=== PATIENT | female | born 1970 | race Caucasian/White ===

== ENCOUNTER 2023-07-15 16:11 | Emergency (ER) | payer OTHER, SELFPAY ==
[2023-07-15 16:17] VITALS: BP 126/60; PULSE 63; RESP 16; TEMP 36.6; O2SAT 98; BMI 21.3
--- NOTE | 2023-07-15 16:34 | ED.GENADUL1 ---
HPI - General Adult General Chief complaint: Abdominal Pain Stated complaint: Flu symptoms Time Seen by Provider: 07/15/23 16:19 Source: patient Mode of arrival: walk-in Limitations: no limitations History of Present Illness HPI narrative: Patient is a 53-year-old female who is presenting to the ER with multiple complaints. Patient stated that 0 Friday evening she started having episodes of nausea, vomiting, and diarrhea that lasted till 3 AM. Friday patient was having midepigastric discomfort. She was feeling somewhat better and able to drink. Yesterday patient was not feeling well but not having any nausea or vomiting or diarrhea. Patient has no headache or neck pain. Patient has myalgias and arthralgias. Patient feels like she has a temperature but she does not. Patient's boyfriend is at bedside. Patient has no urinary or bowel complaints. Patient is having midepigastric pain and discomfort. She does have her gallbladder does not have her appendix. Patient states her emesis has been the food that she ate starting night of beans and corn bread. Patient today was throwing up chocolate milk. Patient has no black stool, no coffee-ground emesis. All systems are negative except as noted/marked. All systems reviewed and otherwise negative. Nurses note and vital signs reviewed and patient is not hypoxic. General: The patient appears mild distress secondary to discomfort to the midepigastric area, histrionic.. Patient is resting uncomfortably on cart. Patient is not toxic, lethargic, or listless Skin: Warm, dry, no pallor noted. There is no rash noted. No petechiae, purpura. Head: Normocephalic, atraumatic Eye: Normal conjunctiva, no drainage, EOMI. PERRL Ears, Nose, Mouth, and Throat: oral mucosa is moist. Nares patent. Mouth without vesicles. Cardiovascular: Regular Rate and Rhythm, no murmur, gallop, rub Respiratory: Patient is in no distress, no accessory muscle use, lungs are clear to auscultation, no wheezing, rales or rhonchi Back: non-tender, no CVA tenderness bilaterally to percussion. No CT LS midline pain GI: Moderate midepigastric tenderness to palpation, no peritoneal signs, no flank pain bilateral, otherwise tenderness to palpation, no masses appreciated. No rebound, mild guarding, or no rigidity noted. No distention Musculoskeletal: Patient has full range of motion of all of the extremities, no motor, sensory, or focal neurological deficits Neurological: A&O x4, normal speech Psychiatric: Cooperative Related Data Previous Rx's Medication Instructions Recorded ondansetron 4 mg disintegrating 4 mg PO Q4H PRN nausea and 07/15/23 tablet vomiting 3 days #6 tabs Allergies Allergy/AdvReac Type Severity Reaction Status Date / Time azithromycin [From Zithromax] AdvReac Mild Verified 07/15/23 16:17 PFSH PFSH Social History Smoking status: Current every day smoker Exam Constitutional Vital Signs, click to edit/add: Last Vital Signs Temp 97.8 F 07/15/23 16:17 Pulse 63 07/15/23 16:17 Resp 16 07/15/23 16:17 BP 126/60 07/15/23 16:17 Pulse Ox 98 07/15/23 16:17 O2 Del Method Room Air 07/15/23 16:17 Course Vital Signs Vital signs: Vital Signs Temperature 97.8 F 07/15/23 16:17 Pulse Rate 63 07/15/23 16:17 Respiratory Rate 16 07/15/23 16:17 Blood Pressure 126/60 07/15/23 16:17 Pulse Oximetry 98 07/15/23 16:17 Oxygen Delivery Method Room Air 07/15/23 16:17 Temperature 97.8 F 07/15/23 16:17 Pulse Rate 63 07/15/23 16:17 Respiratory Rate 16 07/15/23 16:17 Blood Pressure 126/60 07/15/23 16:17 Pulse Oximetry 98 07/15/23 16:17 Oxygen Delivery Method Room Air 07/15/23 16:17 Medical Decision Making MDM Narrative Medical decision making narrative: Patient is completely asymptomatic after the 1st liter of IV fluids has finished, and IV medication has been given. Patient has a BUN at 25 and creatinine 1.33. Patient has no history of kidney disease. This is most likely dehydration. Patient was given a 2nd bag of IV fluids for hydration. Patient was sent home with prescription for Zofran use as needed. Patient can return to work tomorrow.Patient was very thankful for helping her feel better. Patient said there was individuals and her family that had Norovirus. Her gastrointestinal history asthma last chart with diarrhea. Patient is only had diarrhea for 2 days. No gastrointestinal tessting is needed at this time. No questions at discharge. Lab Data Labs: Lab Results 07/15/23 07/15/23 07/15/23 Range/Units 16:24 16:48 18:08 WBC 12.4 H (4.0-11.0) 10^3/uL RBC 4.74 (4.20-5.40) 10^6/uL Hgb 14.7 (12.0-16.0) g/dL Hct 43.4 (36.0-48.0) % MCV 91.6 (81.0-99.0) fL MCH 31.0 (26.7-34.0) pg MCHC 33.9 (29.9-35.2) g/dL RDW 11.9 (11.0-15.0) % Plt Count 236 (150-450) 10^3/uL MPV 9.4 L (9.5-13.5) fL Neut % (Auto) 74.6 (43.0-75.0) % Lymph % (Auto) 12.8 L (20.5-60.0) % [place] % (Auto) 10.4 (1.7-12.0) % Eos % (Auto) 1.5 (0.9-7.0) % Baso % (Auto) 0.4 (0.2-2.0) % Neut # (Auto) 9.2 H (1.4-6.5) 10^3/uL Lymph # (Auto) 1.6 (1.2-3.8) 10^3/uL [place] # (Auto) 1.3 H (0.3-0.8) 10^3/uL Eos # (Auto) 0.2 (0.0-0.7) 10^3/uL Baso # (Auto) 0.1 (0.0-0.1) 10^3/uL Abs Immat Gran (auto) 0.04 H (0.00-0.03) 10^3/uL Imm/Tot Granulo (auto) 0.3 (0.0-0.5) % Sodium 140 (136-145) mmol/L Potassium 4.1 (3.5-5.1) mmol/L Chloride 101 (98-107) mmol/L Carbon Dioxide 27.5 (21.0-32.0) mmol/L Anion Gap 15.6 BUN 25.0 H (7.0-18.0) mg/dL Creatinine 1.33 H (0.55-1.02) mg/dL Est GFR ( Amer) 51 L (>=60) Est GFR (Non-Af Amer) 42 L (>=60) BUN/Creatinine Ratio 18.8 Glucose 103 (74-106) mg/dL Calcium 9.3 (8.5-10.1) mg/dL Total Bilirubin 0.8 (0.2-1.0) mg/dL AST 18 (15-37) U/L ALT 15 (14-59) U/L Alkaline Phosphatase 64 (46-116) U/L Troponin I High Sens <4.0 L (4.0-51.3) pg/mL Total Protein 7.8 (6.4-8.2) g/dL Albumin 3.6 (3.4-5.0) g/dL Globulin 4.2 g/dL Albumin/Globulin Ratio 0.9 Lipase 25.0 (16.0-77.0) U/L Urine Color Lt. yellow (YELLOW) Urine Clarity Clear (CLEAR) Urine pH 5.5 (5.0-9.0) Ur Specific [place] 1.015 (1.005-1.025) Urine Protein 30 A (NEG/TRACE) mg/dL Urine Glucose (UA) Negative (NEGATIVE) mg/dL Urine Ketones Trace A (NEGATIVE) mg/dL Urine Occult Blood Small A (NEGATIVE) Urine Nitrite Negative (NEGATIVE) Urine Bilirubin Negative (NEGATIVE) Urine Urobilinogen 0.2 (0.2-1.0) EU/dL Ur Leukocyte Esterase Trace A (NEGATIVE) Urine RBC 2-5 A (0-2) #/HPF Urine WBC 5-10 A (NONE SEEN) #/HPF Ur Squamous Epith Cells Few A (NONE/RARE) #/LPF Urine Crystals None seen (None Seen) #/HPF Urine Bacteria Trace A (NONE SEEN) #/HPF Urine Casts Seen A (NONE SEEN) #/LPF Fine Granular Casts Few Urine Mucus Trace A (NONE SEEN) ECG Data Attestation: I personally reviewed and interpreted this ECG as follows: (EKG interpretation. Normal sinus rhythm at 61 beats a minute. Normal axis deviation. No acute ST elevation, no acute ectopy. QTc of 400) Discharge Plan Discharge Chief Complaint: Abdominal Pain Clinical Impression: Diarrhea, Renal insufficiency, Nausea & vomiting, Dehydration Patient Disposition: Home, Self-Care Time of Disposition Decision: 19:44 Condition: Good Prescriptions / Home Meds: New ondansetron 4 mg tablet,disintegrating 4 mg PO Q4H PRN (Reason: nausea and vomiting) 3 Days Qty: 6 0RF Instructions: Dehydration (ED), Acute Nausea and Vomiting (ED), Acute Abdominal Pain (ED), Impaired Kidney Function (ED) Additional Instructions: Increase fluids and use clear liquids for the next 2 daays. Gatorade, Powerade, water. Use [id number] antacid medication as needed, including Maalox or Mylanta. Use Zofran as needed to help with nausea and vomiting. Your kidney function was elevated slightly, urinary creatinine of1.33 and BUN of 25. Follow-up with PCP in one to 2 weeks for repeat testing which should improve after hydration. Your given 2 L of IV fluid in the Emergency Room. Stand Alone Forms: Portal Instructions Referrals: Physician,Non-Staff, MD [Primary Care Provider] - 1 week Discharge Date/Time: 07/15/23 20:21
[2023-07-15 16:42] LABS: Basophils Absolute Auto 0.1 10^3/uL (0.0-0.1); Basophils Percent Auto 0.4 % (0.2-2.0); Eosinophils Absolute Auto 0.2 10^3/uL (0.0-0.7); Eosinophils Percent Auto 1.5 % (0.9-7.0); Hematocrit 43.4 % (36.0-48.0); Hemoglobin 14.7 g/dL (12.0-16.0); Immature Granulocytes Abs Auto 0.04 10^3/uL (0.00-0.03); Immature Granulocytes Pct Auto 0.3 % (0.0-0.5); Lymphocytes Absolute Auto 1.6 10^3/uL (1.2-3.8); Lymphocytes Percent Auto 12.8 % (20.5-60.0); Mean Corpuscular HGB Conc 33.9 g/dL (29.9-35.2); Mean Corpuscular Volume 91.6 fL (81.0-99.0); Mean Platelet Volume 9.4 fL (9.5-13.5); Monocytes Absolute Auto 1.3 10^3/uL (0.3-0.8); Monocytes Percent Auto 10.4 % (1.7-12.0); Neutrophils Absolute Auto 9.2 10^3/uL (1.4-6.5); Neutrophils Percent Auto 74.6 % (43.0-75.0); Platelet Count 236 10^3/uL (150-450); Red Blood Count 4.74 10^6/uL (4.20-5.40); Red Cell Distribution Width 11.9 % (11.0-15.0); White Blood Count 12.4 10^3/uL (4.0-11.0)
[2023-07-15] MEDS: ONDANSETRON PF 4 MG/2 ML VIAL IV (16:49)
[2023-07-15] MEDS: FAMOTIDINE/PF 20 MG/2 ML VIAL IV (16:49)
[2023-07-15] MEDS: 0.9 % SODIUM CHLORIDE 1,000 ML 999 ML IV (16:49)
[2023-07-15 17:33] LABS: Alanine Aminotransferase 15 U/L (14-59); Albumin Globulin Ratio 0.9; Albumin Level 3.6 g/dL (3.4-5.0); Alkaline Phosphatase 64 U/L (46-116); Anion Gap 15.6; Aspartate Amino Transferase 18 U/L (15-37); BUN Creatinine Ratio 18.8; Bilirubin Total 0.8 mg/dL (0.2-1.0); Calcium 9.3 mg/dL (8.5-10.1); Carbon Dioxide 27.5 mmol/L (21.0-32.0); Chloride 101 mmol/L (98-107); Estimated GFR (African America 51 (>=60); Estimated GFR (Non-African Ame 42 (>=60); Globulin 4.2 g/dL; Glucose 103 mg/dL (74-106); Potassium 4.1 mmol/L (3.5-5.1); Sodium 140 mmol/L (136-145); Total Protein 7.8 g/dL (6.4-8.2); Troponin I High Sensitivity <4.0 pg/mL (4.0-51.3)
--- NOTE | 2023-07-15 17:42 | ECG_ITS ---
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
[2023-07-15] MEDS: 0.9 % SODIUM CHLORIDE 1,000 ML 1000 ML IV (18:18)
[2023-07-15 18:33] LABS: Bilirubin Urine NEGATIVE (NEGATIVE); Blood Urine SMALL (NEGATIVE); Clarity Urine CLEAR (CLEAR); Color Urine LT. YELLOW (YELLOW); Glucose Urine UA NEGATIVE (NEGATIVE); Ketones Urine TRACE mg/dL (NEGATIVE); Leukocyte Esterase Urine TRACE (NEGATIVE); Nitrite Urine NEGATIVE (NEGATIVE); Protein Urine 30 mg/dL (NEG/TRACE); Specific Gravity Urine 1.015 (1.005-1.025); Urobilinogen Urine 0.2 EU/dL (0.2-1.0); pH Urine 5.5 (5.0-9.0)
[2023-07-15 18:40] LABS: Bacteria Urine TRACE #/HPF (NONE SEEN); Cast Seen? SEEN #/LPF (NONE SEEN); Crystals Seen? None Seen #/HPF (None Seen); Fine Granular Casts Urine FEW; Mucus Urine TRACE (NONE SEEN); Squamous Epithelial Cell Urine FEW #/LPF (NONE/RARE)
[2023-07-15] MEDS: ONDANSETRON 4 MG RAPDIS TABLET SL (20:11)
== END 2023-07-15 20:21 | disposition home or self-care (01) ==
PROVIDERS: Emergency Provider Emergency Medicine
DX: E86.0 Dehydration (principal); R19.7 Diarrhea, unspecified; F17.200 Nicotine dependence, unspecified, uncomplicated; R11.2 Nausea with vomiting, unspecified; N28.9 Disorder of kidney and ureter, unspecified
CPT/HCPCS: 36415; 80053; 81001; 83605; 83690; 84484; 85025; 93005; 96361; 96374; 96375; 99285